=== PATIENT | female | born 1950 | race Caucasian/White ===

== ENCOUNTER 2016-12-22 04:08 | Emergency (ER) | payer MEDICARE ==
[~2016-12-22] VITALS: Ht 160 cm; Wt 77.1 kg
[2016-12-22 04:27] VITALS: BP 150/71
--- NOTE | 2016-12-22 04:54 | PHYS DOC ---
Past Medical History Past Medical History: Diabetes-Type II, High Cholesterol, Hypertension, Hypothyroid Additional Past Medical Histor: gout Past Surgical History: Tubal ligation Alcohol Use: None Drug Use: None Adult General Chief Complaint Chief Complaint: LOWER BACK PAIN OR INJURY HPI HPI Patient is a 66 year old female who presents with complaint of pain to the right lower extremity. Patient states that her symptoms started yesterday after she was moving boxes at her mother's home. She states that her mother recently and she was helping to move things out of the home. Patient states that she accidentally bumped up against a wall with one of the boxes that she was holding, and she felt a twinge in her right buttock. Patient states that she was able to continue walking, however when she started resting she started to feel worsening pain along her right buttock and right hamstring. Patient states that this progressed to more severe symptoms when she tried laying down earlier this evening. Patient states that the pain stops just past her right knee. Patient states that the pain worsens with movement. Patient denies any pain in her middle or lower back. Patient has not had history of similar symptoms. Patient tried taking Tylenol with no relief in symptoms. Patient rates her pain as 8 out of 10 currently. Review of Systems Review of Systems Constitutional: Denies fever or chills [] Eyes: Denies change in visual acuity, redness, or eye pain [] HENT: Denies nasal congestion or sore throat [] Respiratory: Denies cough or shortness of breath [] Cardiovascular: Denies chest pain or edema[] GI: Denies abdominal pain, nausea, vomiting, bloody stools or diarrhea [] : Denies dysuria or hematuria [] Musculoskeletal: Right buttock and hamstring pain[] Integument: Denies rash or skin lesions [] Neurologic: Denies headache, focal weakness or sensory changes [] Current Medications Current Medications Current Medications Medications (Trade) Dose Ordered Sig/Cris Start Time Stop Time Status Last Admin Dose Admin Ketorolac Tromethamine (Toradol Im) 60 mg 1X ONCE 12/22/16 05:00 12/22/16 05:01 DC 12/22/16 04:53 60 MG Orphenadrine Citrate (Norflex) 60 mg 1X ONCE 12/22/16 05:00 12/22/16 05:01 DC 12/22/16 04:53 60 MG Allergies Allergies Allergies Coded Allergies Type Severity Reaction Last Updated Verified Penicillins Allergy Intermediate rash 12/22/16 Yes Physical Exam Physical Exam Constitutional: Alert, afebrile, appears in moderate discomfort. [] HENT: Normocephalic, atraumatic, bilateral external ears normal, oropharynx moist, no oral exudates, nose normal. [] Eyes: PERRLA, EOMI, conjunctiva normal, no discharge. [] Neck: Normal range of motion, no tenderness, supple, no stridor. [] Cardiovascular:Heart rate regular rhythm, no murmur [] Lungs & Thorax: Bilateral breath sounds clear to auscultation [] Abdomen: Bowel sounds normal, soft, no tenderness, no masses, no pulsatile masses. [] Skin: Warm, dry, no erythema, no rash. [] Back: No midline or paraspinous muscle tenderness to palpation, no CVA tenderness. [] Extremities: No obvious deformity to right lower extremity, tenderness to palpation along right buttock, hamstring, and posterior proximal calf, no edema , pulses 2+ distally, normal sensation and right foot. [] Neurologic: Alert and oriented X 3, normal motor function, normal sensory function, no focal deficits noted. [] Current Patient Data Vital Signs Vital Signs Date Time Temp Pulse Resp B/P (MAP) Pulse Ox O2 Delivery O2 Flow Rate FiO2 12/22/16 04:27 98.0 76 16 98 Room Air 98.0 EKG EKG Not performed[] Radiology/Procedures Radiology/Procedures Not performed[] Course & Med Decision Making Course & Med Decision Making Pertinent Labs and Imaging studies reviewed. (See chart for details) Patient was given IM Toradol and Norflex in the emergency department with improvement in symptoms. Patient able to self ambulate to the restroom and back to her room unassisted after administration of medications. Patient's symptoms appear consistent with an acute muscle strain through the buttock and right hamstring. The patient was prescribed ibuprofen and cyclobenzaprine for continued outpatient treatment. Advise follow-up in 2-3 days a primary doctor for reevaluation and return to emergency department for any worsening symptoms. Patient voiced understanding and in agreement with treatment plan. Dragon Disclaimer Dragon Disclaimer This electronic medical record was generated, in whole or in part, using a voice recognition dictation system. Departure Departure Impression: Primary Impression: Right hamstring muscle strain Disposition: HOME, SELF-CARE Condition: IMPROVED Referrals: UNKNOWN PCP NAME (PCP) Patient Instructions: Muscle Strain Additional Instructions: Follow-up with your primary doctor in 2-3 days for reevaluation. Return to the emergency department for any worsening symptoms. Scripts Ibuprofen (IBUPROFEN) 400 Mg Tablet 400 MG PO Q6HRS Y for INFLAMMATION, #30 TAB Prov: PRIYANK WORKMAN MD 12/22/16 Cyclobenzaprine Hcl (CYCLOBENZAPRINE HCL) 10 Mg Tablet 1 TAB PO TID Y for MUSCLE PAIN, #30 TAB Prov: PRIYANK WORKMAN MD 12/22/16 Problem Qualifiers Primary Impression: Right hamstring muscle strain Encounter type: initial encounter Qualified Codes: S76.311A - Strain of muscle, fascia and tendon of the posterior muscle group at thigh level, right thigh, initial encounter PRIYANK WORKMAN MD Dec 22, 2016 04:54
[2016-12-22] MEDS ORDERED: ORPHENADRINE CITRATE 60 MG/2 ML VIAL. IM ONE (05:00)
[2016-12-22] MEDS ORDERED: KETOROLAC 60 MG/2 ML INJ. IM ONE (05:00)
[2016-12-22] MEDS ORDERED: CYCL10TA2 PO (05:27)
[2016-12-22] MEDS ORDERED: IBUP-1027 PO (05:27)
== END 2016-12-22 05:34 | disposition home or self-care (01) ==
LOC: ER 04:08
DX: S76.811A Strain of other specified muscles, fascia and tendons at thigh level, right thigh, initial encounter (principal); E11.9 Type 2 diabetes mellitus without complications; E78.00 Pure hypercholesterolemia, unspecified; I10 Essential (primary) hypertension; E03.9 Hypothyroidism, unspecified; Z88.0 Allergy status to penicillin; W22.01XA Walked into wall, initial encounter; Y93.89 Activity, other specified; Y99.8 Other external cause status; Y92.099 Unspecified place in other non-institutional residence as the place of occurrence of the external cause
CPT/HCPCS: 96372; 99284; J1885; J2360